=== PATIENT | female | born 1940 | race Caucasian/White ===

== ENCOUNTER → 2017-12-24 14:01 | Outpatient (CLI) | payer MEDICARE, OTHER, SELFPAY | PROVIDERS: Visit Provider Internal Medicine | DX: L89.92 Pressure ulcer of unspecified site, stage 2 (principal); S71.102A Unspecified open wound, left thigh, initial encounter; Z99.3 Dependence on wheelchair; E11.01 Type 2 diabetes mellitus with hyperosmolarity with coma | CPT/HCPCS: 11042; 87070; 87075; 87077; 87186; 87205 ==

== ENCOUNTER → 2018-01-01 10:57 | Outpatient (CLI) | payer MEDICARE, OTHER, SELFPAY ==
--- NOTE | 2018-01-01 | OV.WND_ITS ---
Progress Note Details Patient Name: Saritha Palmer Patient Number: [id number] PatientPatientDate: 01/01/2018 Clinician: Alejandra Gavin Clinician Cosigner: Zohreh Berry Physician / Bronc Buster: Constantine Rock SUBJECTIVE Chief Complaint This information was obtained from the patient Pressure ulcer on left posterior knee. Allergies NKDA HPI This information was obtained from the patient 01/01/18. Seen by Dr. Rock. The patient does not report pain associated with the left posterior thigh pressure ulcer since her last visit however her daughter and staff report significant drainage on the dressings. She's now on levofloxacin for the recent Acinetobacter and coag negative Staph cultured from the ulcer and she does not report fevers, adverse side effects from the antibiotics, nor feeling unwell in general. 12/24/17. Seen by Dr. Rock. The patient returns to clinic with a chronic left posterior thigh pressure ulcer that her daughter states has been present for about one month. The patient reports some pain at the site however there's no reported heavy drainage from the ulcer. She's morbidly obese and spends most of her time in a wheelchair which is thought to be the source of the ulcer. 06/28/[address] Rock. The patient nor her daughter report drainage from the right lower leg venous ulcer over the past week. 06/21/[address] Rock. The patient does not report pain associated with the right lower leg venous ulcer and she feels the drainage has decreased considerably over the past week. She continues on clindamycin and ampicillin for the coag negative Staph and Enterococcus positive wound cultures from 06/10/15 without reporting adverse side effects. 06/18/2015 Seen by Julio C Boucher PA-C. The patient reports decreased drainage from her wound vac. No ulcer pain reported. 06/14/[address] Rock. The patient reports less drainage in her wound vac and only minimal discomfort associated with the chronic right lower leg venous ulcer. Her recent wound culture grew Enterococcus and Staph. 06/07/[address] Rock. The patient states her wound vac canister filled and was replaced yesterday and she reports intermittent mild burning at the site of the right lower leg venous ulcer. Today is also her last day of Augmentin that was treating Enterococcus and 2 Staph species cultured from the ulcer. She does not report adverse side effects. 06/04/2015 Seen by Julio C Boucher PA-C. The patient has just completed her arterial doppler and the radiologist has informed me it is non-diagnostic due to body habitus. She reports stable drainage from her ulcer. 05/31/[address] Rock. the patient does not report an new issues regarding her right lower leg venous ulcer nor problems with the SNAP negative pressure dressing. Her wound culture from 05/28/15 grew two Staph species plus Enterococcus and she's currently not on antibiotics. 05/28/15 Seen by Julio C Boucher PA-C. The patient has tolerated her wound vac well and has recently moved into a house in town with a family caregiver. She reports minimal pain from her ulcer. 05/21/15 Seen by Julio C Boucher PA-C. The patient has noted not difficulties with her wound vac. Again she notes intermittent pain from her ulcer. 05/18/[address] Rock. The patient reports significant drainage from the right lower leg venous ulcer but does not report any problems regarding the wound vac. She states the ulcer is only minimally painful from time to time. 05/08/15 Seen by Julio C Boucher PA-C. The patient reports continued copious drainage from her venous ulcer. She will soon be moving to [place] and staying with family, once they have finished the addition to their house. She reports that she does not leave the house except to go to medical appointments. 05/03/[address] Rock. The patient's new to our clinic and has been referred by Dr. Krishnan for review of a chronic right lower leg venous ulcer that's been present for about 1 year. The patient reports copious drainage from the ulcer and has been on Bactrim recently plus two prior courses of doxycycline. Her wound culture from earlier this month grew Staph, Enterococcus, and Proteus and the patient feels the ulcer improved in terms of drainage while on antibiotics but she reports increased drainage the past few days since completing her course of Bactrim. She also has not utilized compression therapy over the past year due to the need to change dressings multiple times throughout the day. Of note, she uses a motorized wheelchair to mobilize due to morbid obesity and she does not report a history of diabetes, PAD, or symptoms of claudication or rest pain. Past Medical History This information was obtained from the patient Patient has a medical history of: Hydronephrosis, left (due to nephrolithiasis) Hallucinations Arthritis, right knee Tinea corporis Postmenopausal bleeding Atrial fibrillation Hypertension Dyslipidemia Morbid obesity Depression Allergic rhinitis Chronic venous hypertension (w/ inflammation and ulceration; right calf) Lymphedema Complaints and Symptoms This information was obtained from the patient Patient complains of: General Notes: I have reviewed and concur with the Review of Systems and Past Family Social History documents completed by the clinician, I have reviewed and concur with the Wound Assessment document completed by the clinician Cardiovascular (Central): Irregular heart beat Cardiovascular (Central/Peripheral): Lower extremity (leg) swelling Integumentary (Hair/Skin/Nails): Open Sore Musculoskeletal: Assistive Devices, Backache Prior Wound History: Drainage, Erythema, Pain Psychiatric: Depression Patient denies complaints or symptoms related to: Cardiovascular (Central/Peripheral): Intermittent Claudication, Lower extremity (leg) resting pain Constitutional Symptoms (General Health): Chills, Fever Ear/Nose/Mouth/Throat: Hearing Loss / Aid Gastrointestinal (GI): Nausea / Vomiting Hematologic/Lymphatic: Bleeding / Clotting Disorders, Bleeding Tendency Neurological: Loss of Protective Sensation Oncologic Prior Wound History: Bleeding, Malodor Psychiatric: Memory Loss Respiratory: Oxygen Use, Shortness of Breath OBJECTIVE Constitutional Vital signs reviewed and noted. Well developed. Alert. Clean appearing.. Height/ Length: 58 in (147.32 cm), BMI: 0, Temperature: 97.2 ?F (36.22 ?C), Pulse: 82 bpm, Respiratory Rate: 17 breaths/min, Blood Pressure: 125/69 mmHg, Pulse Oximetry: 97 %. Respiratory: No respiratory distress. Even respirations and without use of accessory muscles.. Cardiovascular: 3+ bilateral lower leg edema. Gastrointestinal (GI): Obese. Nondistended.. Integumentary (Hair, Skin) No periwound erythema, warmth, or significant drainage. No periwound rashes appreciated or noted otherwise.. Refer to appropriate clinician wound documentation for this visit; left posterior thigh ulcer extends to subcut with base partially covered with pink granulation, remainder fibrin and slough. Wound #2 Left Thigh is a chronic Stage 2 Pressure Injury Pressure Ulcer and has received a status of Not Healed. Subsequent wound encounter measurements are 3cm length x 2cm width x 0.2cm depth, with an area of 6 sq cm and a volume of 1.2 cubic cm. There is a moderate amount of serous drainage noted which has no odor. The patient reports a wound pain of level 0/10. The wound margin is attached. Wound bed has No epithelialization, No eschar, Yes slough, Yes bright red, pink, firm granulation. The periwound skin color is normal. The periwound skin exhibited: Edema, Moist. The periwound skin did not exhibit: Brawny Induration, Excoriation, Induration, Callus, Crepitus, Fluctuance, Friable, Rash, Dry/Scaly, Maceration. The temperature of the periwound skin is WNL. Periwound skin does not exhibit signs or symptoms of infection. Local Pulse is N/A. Neurological: Cranial nerves grossly intact with symmetric function normal by informal observation.. ASSESSMENT Active Problems ICD-10 (Encounter Diagnosis) L89.90 - Pressure ulcer of unspecified site, unspecified stage (Encounter Diagnosis) S71.102A - Unspecified open wound, left thigh, initial encounter (Encounter Diagnosis) L08.89 - Other specified local infections of the skin and subcutaneous tissue PROCEDURES Wound #2 Wound #2 (Pressure Ulcer) is located on the left thigh. A skin/subcutaneous tissue level surgical debridement with a total area debrided of 6 sq cm was performed by Constantine Rock MD. Subcutaneous was removed along with devitalized tissue: exudate and slough. The following instrument(s) were used: curette. Pain control was achieved using 4% Lido. A time out was conducted prior to the start of the procedure. A minimal amount of bleeding was controlled with n/a. The procedure was tolerated well with a pain level of 0 throughout and a pain level of 0 following the procedure. Post Debridement Measurements: 3cm length x 2cm width x 0.3cm depth; with an area of 6 sq cm and a volume of 1.8 cubic cm; Additional Information Muscle fascia or bone removed and sent to pathology?: No PLAN Wound Orders: Wound #2 Left Thigh Anesthetic Topical Xylocaine to wound bed. - In clinic only. Cleanser Cleanse Wound: - Normal saline and gauze. May use distilled water at home. May Shower. - Please avoid contact with wound site. Topical Treatments Antibiotic/Antimicrobial Ointment/Cream. - Aquacel. Dressings Cover and secure with: - ExuDry place in clinic, may use poise pads or other absorbent dressing at home. Change Dressing: - Home health- please change dressing on Mondays and Wednesdays. Patient- please change dressing as much as needed to control drainage. Additional Orders: Off-Loading Keep weight off: - Left thigh as much as possible. Prop area up with pillows. Follow-Up Appointments Return Appointment: - - One week. Other information: If you develop fever, chills, increased pain, drainage, redness or swelling please call our office. If after hours, respond to the ER. Should you experience any significant changes in your wound(s) or have any questions regarding your home care instructions please contact the wound center @ [phone]. If after hours, contact your primary care physician or go to the hospital emergency room. Scribing Attestation I attest, as the nurse, that I scribed these orders for the physician. I've reviewed the clinician's documentation and agree with the evaluation and plan as written. In addition, the patient's ulcer demonstrates evidence of non-viable devitalized tissue which will continue to benefit from sharp debridement to help promote granulation and expedite healing. Also, the patient will complete her course of levofloxacin as prescribed and we' ll continue to encourage offloading of the ulcer site noting this is difficult based on her morbid obesity and wheelchair dependence. Electronic Signature(s) Signed By: Date: Constantine Rock MD 01/04/2018 09:40:37 Entered By: Constantine Rock on 01/04/2018 09:29:20
== END ==
PROVIDERS: Visit Provider Internal Medicine
DX: L89.92 Pressure ulcer of unspecified site, stage 2 (principal); S71.102A Unspecified open wound, left thigh, initial encounter; E66.01 Morbid (severe) obesity due to excess calories; Z99.3 Dependence on wheelchair
CPT/HCPCS: 11042

== ENCOUNTER → 2018-01-08 10:08 | Outpatient (CLI) | payer MEDICARE, OTHER, SELFPAY | PROVIDERS: Visit Provider Internal Medicine | DX: L89.92 Pressure ulcer of unspecified site, stage 2 (principal); S71.102A Unspecified open wound, left thigh, initial encounter; E66.01 Morbid (severe) obesity due to excess calories; Z99.3 Dependence on wheelchair | CPT/HCPCS: 99213 ==

== ENCOUNTER → 2018-01-15 11:01 | Outpatient (CLI) | payer MEDICARE, OTHER, SELFPAY ==
--- NOTE | 2018-01-15 | OV.WND_ITS ---
Progress Note Details Patient Name: Saritha Palmer Patient Number: [id number] PatientPatientDate: 01/15/2018 Clinician: Sarah Hernandez Clinician Cosigner: Zohreh Berry Physician / Solution Engineer: Constantine Rock SUBJECTIVE Chief Complaint This information was obtained from the patient Pressure ulcer on left posterior knee. Allergies NKDA HPI This information was obtained from the patient 01/15/18. Seen by Dr. Rock. The patient fell in her transport van just prior to arriving at clinic and does not report any pain or injuries. Regarding her left posterior thigh pressure ulcer she does not report increased drainage or pain since her last visit. 01/01/18. Seen by Dr. Rock. The patient does not report pain associated with the left posterior thigh pressure ulcer since her last visit however her daughter and staff report significant drainage on the dressings. She's now on levofloxacin for the recent Acinetobacter and coag negative Staph cultured from the ulcer and she does not report fevers, adverse side effects from the antibiotics, nor feeling unwell in general. 12/24/17. Seen by Dr. Rock. The patient returns to clinic with a chronic left posterior thigh pressure ulcer that her daughter states has been present for about one month. The patient reports some pain at the site however there's no reported heavy drainage from the ulcer. She's morbidly obese and spends most of her time in a wheelchair which is thought to be the source of the ulcer. 06/28/[address] Rock. The patient nor her daughter report drainage from the right lower leg venous ulcer over the past week. 06/21/[address] Rock. The patient does not report pain associated with the right lower leg venous ulcer and she feels the drainage has decreased considerably over the past week. She continues on clindamycin and ampicillin for the coag negative Staph and Enterococcus positive wound cultures from 06/10/15 without reporting adverse side effects. 06/18/2015 Seen by Julio C Boucher PA-C. The patient reports decreased drainage from her wound vac. No ulcer pain reported. 06/14/[address] Rock. The patient reports less drainage in her wound vac and only minimal discomfort associated with the chronic right lower leg venous ulcer. Her recent wound culture grew Enterococcus and Staph. 06/07/[address] Rock. The patient states her wound vac canister filled and was replaced yesterday and she reports intermittent mild burning at the site of the right lower leg venous ulcer. Today is also her last day of Augmentin that was treating Enterococcus and 2 Staph species cultured from the ulcer. She does not report adverse side effects. 06/04/2015 Seen by Julio C Boucher PA-C. The patient has just completed her arterial doppler and the radiologist has informed me it is non-diagnostic due to body habitus. She reports stable drainage from her ulcer. 05/31/[address] Rock. the patient does not report an new issues regarding her right lower leg venous ulcer nor problems with the SNAP negative pressure dressing. Her wound culture from 05/28/15 grew two Staph species plus Enterococcus and she's currently not on antibiotics. 05/28/15 Seen by Julio C Boucher PA-C. The patient has tolerated her wound vac well and has recently moved into a house in town with a family caregiver. She reports minimal pain from her ulcer. 05/21/15 Seen by Julio C Boucher PA-C. The patient has noted not difficulties with her wound vac. Again she notes intermittent pain from her ulcer. 05/18/[address] Rock. The patient reports significant drainage from the right lower leg venous ulcer but does not report any problems regarding the wound vac. She states the ulcer is only minimally painful from time to time. 05/08/15 Seen by Julio C Boucher PA-C. The patient reports continued copious drainage from her venous ulcer. She will soon be moving to [place] and staying with family, once they have finished the addition to their house. She reports that she does not leave the house except to go to medical appointments. 05/03/[address] Rock. The patient's new to our clinic and has been referred by Dr. Krishnan for review of a chronic right lower leg venous ulcer that's been present for about 1 year. The patient reports copious drainage from the ulcer and has been on Bactrim recently plus two prior courses of doxycycline. Her wound culture from earlier this month grew Staph, Enterococcus, and Proteus and the patient feels the ulcer improved in terms of drainage while on antibiotics but she reports increased drainage the past few days since completing her course of Bactrim. She also has not utilized compression therapy over the past year due to the need to change dressings multiple times throughout the day. Of note, she uses a motorized wheelchair to mobilize due to morbid obesity and she does not report a history of diabetes, PAD, or symptoms of claudication or rest pain. Past Medical History This information was obtained from the patient Patient has a medical history of: Hydronephrosis, left (due to nephrolithiasis) Hallucinations Arthritis, right knee Tinea corporis Postmenopausal bleeding Atrial fibrillation Hypertension Dyslipidemia Morbid obesity Depression Allergic rhinitis Chronic venous hypertension (w/ inflammation and ulceration; right calf) Lymphedema Complaints and Symptoms This information was obtained from the patient Patient complains of: General Notes: I have reviewed and concur with the Review of Systems and Past Family Social History documents completed by the clinician, I have reviewed and concur with the Wound Assessment document completed by the clinician Cardiovascular (Central): Irregular heart beat Cardiovascular (Central/Peripheral): Lower extremity (leg) swelling Integumentary (Hair/Skin/Nails): Open Sore Musculoskeletal: Assistive Devices, Backache Prior Wound History: Drainage, Erythema, Pain Psychiatric: Depression Patient denies complaints or symptoms related to: Cardiovascular (Central/Peripheral): Intermittent Claudication, Lower extremity (leg) resting pain Constitutional Symptoms (General Health): Chills, Fever Ear/Nose/Mouth/Throat: Hearing Loss / Aid Gastrointestinal (GI): Nausea / Vomiting Hematologic/Lymphatic: Bleeding / Clotting Disorders, Bleeding Tendency Neurological: Loss of Protective Sensation Oncologic Prior Wound History: Bleeding, Malodor Psychiatric: Memory Loss Respiratory: Oxygen Use, Shortness of Breath OBJECTIVE Constitutional BP elevated; Afebrile; Alert and in no distress. Well developed. Alert. Clean appearing.. Height/Length: 58 in (147.32 cm), BMI: 0, Temperature: 97.2 ?F (36.22 ?C), Pulse : 85 bpm, Respiratory Rate: 20 breaths/min, Blood Pressure: 169/86 mmHg, Pulse Oximetry: 99 %. Ears, Nose, Mouth, and Throat: No clinically significant hearing loss on informal examination. Respiratory: No respiratory distress. Even respirations and without use of accessory muscles.. Gastrointestinal (GI): Obese. Nondistended.. Integumentary (Hair, Skin) Hyperkeratotic changes noted over the left lower leg. Refer to appropriate clinician wound documentation for this visit; left posterior thigh ulcer extends to subcut with base partially covered with red granulation, remainder fibrin and slough. Wound #2 Left Thigh is a chronic Stage 2 Pressure Injury Pressure Ulcer and has received a status of Not Healed. Subsequent wound encounter measurements are 2cm length x 1.8cm width x 0.2cm depth, with an area of 3.6 sq cm and a volume of 0.72 cubic cm. No tunneling has been noted. No sinus tract has been noted. No undermining has been noted. There is a large amount of serous drainage noted which has no odor. The patient reports a wound pain of level 0/10. The wound margin is attached. Wound bed has No epithelialization, No eschar, Yes slough, Yes bright red, spongy granulation. The periwound skin color is normal. The periwound skin exhibited: Edema, Moist, Maceration. The periwound skin did not exhibit: Brawny Induration, Excoriation, Induration, Callus, Crepitus, Fluctuance, Friable, Rash, Dry/Scaly. The temperature of the periwound skin is WNL. Periwound skin presents with s/s of infection. Confirmation Description and Treatment Plan is: Signs and Symptoms Present. Local Pulse is N/A. Neurological: Cranial nerves grossly intact with symmetric function normal by informal observation.. ASSESSMENT Active Problems ICD-10 (Encounter Diagnosis) L89.90 - Pressure ulcer of unspecified site, unspecified stage (Encounter Diagnosis) W18.30XA - Fall on same level, unspecified, initial encounter (Encounter Diagnosis) S71.102D - Unspecified open wound, left thigh, subsequent encounter PLAN I've reviewed the clinician's documentation and agree with the evaluation and plan as written. In addition, the patient's ulcer demonstrates evidence of non-viable devitalized tissue which will continue to benefit from sharp debridement to help promote granulation and expedite healing. Also, we'll consider placing a wound vac next week to help facilitate granulation. Electronic Signature(s) Signed By: Date: Constantine Rock MD 01/15/2018 13:36:07 Entered By: Constantine Rock on 01/15/2018 11:16:52
== END ==
PROVIDERS: Visit Provider Internal Medicine
DX: L89.92 Pressure ulcer of unspecified site, stage 2 (principal); S71.102D Unspecified open wound, left thigh, subsequent encounter
CPT/HCPCS: 11042

== ENCOUNTER → 2018-01-21 13:36 | Outpatient (CLI) | payer MEDICARE, OTHER, SELFPAY | PROVIDERS: Visit Provider Internal Medicine | DX: L89.92 Pressure ulcer of unspecified site, stage 2 (principal) | CPT/HCPCS: 11042; 87070; 87075; 87077; 87186; 87205 ==

== ENCOUNTER → 2018-01-28 14:06 | Outpatient (CLI) | payer MEDICARE, OTHER, SELFPAY ==
--- NOTE | 2018-01-28 | OV.WND_ITS ---
Progress Note Details Patient Name: Saritha Palmer Patient Number: [id number] PatientPatientDate: 01/28/2018 Clinician: Alejandra Gavin Clinician Cosigner: Zohreh Berry Physician / Avionics Test Technician: Constantine Rock SUBJECTIVE Chief Complaint This information was obtained from the patient Pressure ulcer on left posterior thigh. Allergies NKDA HPI This information was obtained from the patient 01/28/18. Seen by Dr. Rock. The patient is now on Augmentin and levofloxacin for the recent Klebsiella and Proteus positive culture taken from the chronic left posterior thigh pressure ulcer and does not report adverse side effects. 01/21/18. Seen by Dr. Rock. The patient does not report pain associated with the left posterior thigh pressure ulcer since her last visit and we're still awaiting approval for a wound vac. 01/15/18. Seen by Dr. Rock. The patient fell in her transport van just prior to arriving at clinic and does not report any pain or injuries. Regarding her left posterior thigh pressure ulcer she does not report increased drainage or pain since her last visit. 01/01/18. Seen by Dr. Rock. The patient does not report pain associated with the left posterior thigh pressure ulcer since her last visit however her daughter and staff report significant drainage on the dressings. She's now on levofloxacin for the recent Acinetobacter and coag negative Staph cultured from the ulcer and she does not report fevers, adverse side effects from the antibiotics, nor feeling unwell in general. 12/24/17. Seen by Dr. Rock. The patient returns to clinic with a chronic left posterior thigh pressure ulcer that her daughter states has been present for about one month. The patient reports some pain at the site however there's no reported heavy drainage from the ulcer. She's morbidly obese and spends most of her time in a wheelchair which is thought to be the source of the ulcer. 06/28/[address] Rock. The patient nor her daughter report drainage from the right lower leg venous ulcer over the past week. 06/21/[address] Rock. The patient does not report pain associated with the right lower leg venous ulcer and she feels the drainage has decreased considerably over the past week. She continues on clindamycin and ampicillin for the coag negative Staph and Enterococcus positive wound cultures from 06/10/15 without reporting adverse side effects. 06/18/2015 Seen by Julio C Boucher PA-C. The patient reports decreased drainage from her wound vac. No ulcer pain reported. 06/14/[address] Rock. The patient reports less drainage in her wound vac and only minimal discomfort associated with the chronic right lower leg venous ulcer. Her recent wound culture grew Enterococcus and Staph. 06/07/[address] Rock. The patient states her wound vac canister filled and was replaced yesterday and she reports intermittent mild burning at the site of the right lower leg venous ulcer. Today is also her last day of Augmentin that was treating Enterococcus and 2 Staph species cultured from the ulcer. She does not report adverse side effects. 06/04/2015 Seen by Julio C Boucher PA-C. The patient has just completed her arterial doppler and the radiologist has informed me it is non-diagnostic due to body habitus. She reports stable drainage from her ulcer. 05/31/[address] Rock. the patient does not report an new issues regarding her right lower leg venous ulcer nor problems with the SNAP negative pressure dressing. Her wound culture from 05/28/15 grew two Staph species plus Enterococcus and she's currently not on antibiotics. 05/28/15 Seen by Julio C Boucher PA-C. The patient has tolerated her wound vac well and has recently moved into a house in town with a family caregiver. She reports minimal pain from her ulcer. 05/21/15 Seen by Julio C Boucher PA-C. The patient has noted not difficulties with her wound vac. Again she notes intermittent pain from her ulcer. 05/18/[address] Rock. The patient reports significant drainage from the right lower leg venous ulcer but does not report any problems regarding the wound vac. She states the ulcer is only minimally painful from time to time. 05/08/15 Seen by Julio C Boucher PA-C. The patient reports continued copious drainage from her venous ulcer. She will soon be moving to [place] and staying with family, once they have finished the addition to their house. She reports that she does not leave the house except to go to medical appointments. 05/03/[address] Rock. The patient's new to our clinic and has been referred by Dr. Krishnan for review of a chronic right lower leg venous ulcer that's been present for about 1 year. The patient reports copious drainage from the ulcer and has been on Bactrim recently plus two prior courses of doxycycline. Her wound culture from earlier this month grew Staph, Enterococcus, and Proteus and the patient feels the ulcer improved in terms of drainage while on antibiotics but she reports increased drainage the past few days since completing her course of Bactrim. She also has not utilized compression therapy over the past year due to the need to change dressings multiple times throughout the day. Of note, she uses a motorized wheelchair to mobilize due to morbid obesity and she does not report a history of diabetes, PAD, or symptoms of claudication or rest pain. Past Medical History This information was obtained from the patient Patient has a medical history of: Hydronephrosis, left (due to nephrolithiasis) Hallucinations Arthritis, right knee Tinea corporis Postmenopausal bleeding Atrial fibrillation Hypertension Dyslipidemia Morbid obesity Depression Allergic rhinitis Chronic venous hypertension (w/ inflammation and ulceration; right calf) Lymphedema Complaints and Symptoms This information was obtained from the patient Patient complains of: General Notes: I have reviewed and concur with the Review of Systems and Past Family Social History documents completed by the clinician, I have reviewed and concur with the Wound Assessment document completed by the clinician Cardiovascular (Central): Irregular heart beat Cardiovascular (Central/Peripheral): Lower extremity (leg) swelling Integumentary (Hair/Skin/Nails): Open Sore Musculoskeletal: Assistive Devices, Backache Prior Wound History: Drainage, Erythema, Pain Psychiatric: Depression Patient denies complaints or symptoms related to: Cardiovascular (Central/Peripheral): Intermittent Claudication, Lower extremity (leg) resting pain Constitutional Symptoms (General Health): Chills, Fever Ear/Nose/Mouth/Throat: Hearing Loss / Aid Gastrointestinal (GI): Nausea / Vomiting Hematologic/Lymphatic: Bleeding / Clotting Disorders, Bleeding Tendency Neurological: Loss of Protective Sensation Oncologic Prior Wound History: Bleeding, Malodor Psychiatric: Memory Loss Respiratory: Oxygen Use, Shortness of Breath OBJECTIVE Constitutional Vital signs reviewed and noted. Height/Length: 58 in (147.32 cm), BMI: 0, Temperature: 97.3 ?F (36.28 ?C), Pulse: 95 bpm, Respiratory Rate: 19 breaths/min, Pulse Oximetry: 99 %. Respiratory: No respiratory distress. Even respirations and without use of accessory muscles.. Gastrointestinal (GI): Obese. Nondistended.. Integumentary (Hair, Skin) Hyperkeratotic changes noted over the right thigh. Refer to appropriate clinician wound documentation for this visit; left lower leg ulcer extends to subcut with base partially covered with pink granulation. Wound #2 Left Thigh is a chronic Stage 2 Pressure Injury Pressure Ulcer and has received a status of Not Healed. Subsequent wound encounter measurements are 3cm length x 1.6cm width x 0.2cm depth, with an area of 4.8 sq cm and a volume of 0.96 cubic cm. No tunneling has been noted. No sinus tract has been noted. No undermining has been noted. There is a large amount of serous drainage noted which has no odor. The patient reports a wound pain of level 0/10. The wound margin is attached. Wound bed has No epithelialization, No eschar, Yes slough, Yes bright red, spongy granulation. The periwound skin color is normal. The periwound skin exhibited: Edema, Moist. The periwound skin did not exhibit: Brawny Induration, Excoriation, Induration, Callus, Crepitus, Fluctuance, Friable, Rash, Dry/Scaly, Maceration. The temperature of the periwound skin is WNL. Periwound skin does not exhibit signs or symptoms of infection. Local Pulse is N/A. Neurological: Cranial nerves grossly intact with symmetric function normal by informal observation.. ASSESSMENT Active Problems ICD-10 (Encounter Diagnosis) L89.90 - Pressure ulcer of unspecified site, unspecified stage (Encounter Diagnosis) S71.102D - Unspecified open wound, left thigh, subsequent encounter (Encounter Diagnosis) B96.1 - Klebsiella pneumoniae [K. pneumoniae] as the cause of diseases classified elsewhere (Encounter Diagnosis) B96.4 - Proteus (mirabilis) (morganii) as the cause of diseases classified elsewhere PROCEDURES Wound #2 Wound #2 (Pressure Ulcer) is located on the left thigh. A skin/subcutaneous tissue level surgical debridement with a total area debrided of 4.8 sq cm was performed by Constantine Rock MD. Subcutaneous was removed along with devitalized tissue: slough. The following instrument(s) were used: curette. Pain control was achieved using 4% Lido. A time out was conducted prior to the start of the procedure. A minimal amount of bleeding was controlled with n/a. The procedure was tolerated well with a pain level of 0 throughout and a pain level of 0 following the procedure. Post Debridement Measurements: 3cm length x 1.6cm width x 0.3cm depth; with an area of 4.8 sq cm and a volume of 1.44 cubic cm; Additional Information Muscle fascia or bone removed and sent to pathology?: No PLAN Wound Orders: Wound #2 Left Thigh Anesthetic Topical Xylocaine to wound bed. - In clinic only. Cleanser Cleanse Wound: - Normal saline and gauze. May use distilled water at home. May Shower. - Please avoid contact with wound site. Dressings Cover and secure with: - Poise pad (sanitary pad) secured with hypafix tape. Change Dressing: - Home health- please change dressing on Mondays and Wednesdays and Thursday. Patient- please change dressing as much as needed to control drainage. Off-Loading Keep weight off: - Left thigh as much as possible. Prop area up with pillows. Additional Orders: Follow-Up Appointments Return Appointment: - - Two weeks Other information: If you develop fever, chills, increased pain, drainage, redness or swelling please call our office. If after hours, respond to the ER. Should you experience any significant changes in your wound(s) or have any questions regarding your home care instructions please contact the wound center @ [phone]. If after hours, contact your primary care physician or go to the hospital emergency room. Scribing Attestation I attest, as the nurse, that I scribed these orders for the physician. I've reviewed the clinician's documentation and agree with the evaluation and plan as written. In addition, the patient's ulcer demonstrates evidence of non-viable devitalized tissue which will continue to benefit from sharp debridement to help promote granulation and expedite healing. Also, the patient will complete her antibiotics as prescribed. Electronic Signature(s) Signed By: Date: Constantine Rock MD 01/29/2018 08:53:09 Entered By: Constantine Rock on 01/29/2018 07:18:21
== END ==
PROVIDERS: Visit Provider Internal Medicine
DX: B96.1 Klebsiella pneumoniae [K. pneumoniae] as the cause of diseases classified elsewhere (principal); B96.4 Proteus (mirabilis) (morganii) as the cause of diseases classified elsewhere; L89.92 Pressure ulcer of unspecified site, stage 2; S71.102A Unspecified open wound, left thigh, initial encounter
CPT/HCPCS: 11042

== ENCOUNTER → 2018-02-11 13:29 | Outpatient (CLI) | payer MEDICARE, OTHER, SELFPAY ==
--- NOTE | 2018-02-11 | OV.WND_ITS ---
Progress Note Details Patient Name: Saritha Palmer Patient Number: [id number] PatientPatientDate: 02/11/2018 Clinician: Lori Suarez Clinician Cosigner: Zohreh Berry Physician / Instrument Panel Assembler: Constantine Rock SUBJECTIVE Chief Complaint This information was obtained from the patient Pressure ulcer on left posterior thigh. Allergies NKDA HPI This information was obtained from the patient 02/11/18. Seen by Dr. Rock. The patient completed her course of Augmentin and levofloxacin that was treating the recent Klebsiella and Proteus positive culture taken from the chronic left posterior thigh pressure ulcer and she does not report pain or increased drainage from this site. 01/28/18. Seen by Dr. Rock. The patient is now on Augmentin and levofloxacin for the recent Klebsiella and Proteus positive culture taken from the chronic left posterior thigh pressure ulcer and does not report adverse side effects. 01/21/18. Seen by Dr. Rock. The patient does not report pain associated with the left posterior thigh pressure ulcer since her last visit and we're still awaiting approval for a wound vac. 01/15/18. Seen by Dr. Rock. The patient fell in her transport van just prior to arriving at clinic and does not report any pain or injuries. Regarding her left posterior thigh pressure ulcer she does not report increased drainage or pain since her last visit. 01/01/18. Seen by Dr. Rock. The patient does not report pain associated with the left posterior thigh pressure ulcer since her last visit however her daughter and staff report significant drainage on the dressings. She's now on levofloxacin for the recent Acinetobacter and coag negative Staph cultured from the ulcer and she does not report fevers, adverse side effects from the antibiotics, nor feeling unwell in general. 12/24/17. Seen by Dr. Rock. The patient returns to clinic with a chronic left posterior thigh pressure ulcer that her daughter states has been present for about one month. The patient reports some pain at the site however there's no reported heavy drainage from the ulcer. She's morbidly obese and spends most of her time in a wheelchair which is thought to be the source of the ulcer. 06/28/[address] Rock. The patient nor her daughter report drainage from the right lower leg venous ulcer over the past week. 06/21/[address] Rock. The patient does not report pain associated with the right lower leg venous ulcer and she feels the drainage has decreased considerably over the past week. She continues on clindamycin and ampicillin for the coag negative Staph and Enterococcus positive wound cultures from 06/10/15 without reporting adverse side effects. 06/18/2015 Seen by Julio C Boucher PA-C. The patient reports decreased drainage from her wound vac. No ulcer pain reported. 06/14/[address] Rock. The patient reports less drainage in her wound vac and only minimal discomfort associated with the chronic right lower leg venous ulcer. Her recent wound culture grew Enterococcus and Staph. 06/07/[address] Rock. The patient states her wound vac canister filled and was replaced yesterday and she reports intermittent mild burning at the site of the right lower leg venous ulcer. Today is also her last day of Augmentin that was treating Enterococcus and 2 Staph species cultured from the ulcer. She does not report adverse side effects. 06/04/2015 Seen by Julio C Boucher PA-C. The patient has just completed her arterial doppler and the radiologist has informed me it is non-diagnostic due to body habitus. She reports stable drainage from her ulcer. 05/31/[address] Rock. the patient does not report an new issues regarding her right lower leg venous ulcer nor problems with the SNAP negative pressure dressing. Her wound culture from 05/28/15 grew two Staph species plus Enterococcus and she's currently not on antibiotics. 05/28/15 Seen by Julio C Boucher PA-C. The patient has tolerated her wound vac well and has recently moved into a house in town with a family caregiver. She reports minimal pain from her ulcer. 05/21/15 Seen by Julio C Boucher PA-C. The patient has noted not difficulties with her wound vac. Again she notes intermittent pain from her ulcer. 05/18/[address] Rock. The patient reports significant drainage from the right lower leg venous ulcer but does not report any problems regarding the wound vac. She states the ulcer is only minimally painful from time to time. 05/08/15 Seen by Julio C Boucher PA-C. The patient reports continued copious drainage from her venous ulcer. She will soon be moving to [place] and staying with family, once they have finished the addition to their house. She reports that she does not leave the house except to go to medical appointments. 05/03/[address] Rock. The patient's new to our clinic and has been referred by Dr. Krishnan for review of a chronic right lower leg venous ulcer that's been present for about 1 year. The patient reports copious drainage from the ulcer and has been on Bactrim recently plus two prior courses of doxycycline. Her wound culture from earlier this month grew Staph, Enterococcus, and Proteus and the patient feels the ulcer improved in terms of drainage while on antibiotics but she reports increased drainage the past few days since completing her course of Bactrim. She also has not utilized compression therapy over the past year due to the need to change dressings multiple times throughout the day. Of note, she uses a motorized wheelchair to mobilize due to morbid obesity and she does not report a history of diabetes, PAD, or symptoms of claudication or rest pain. Past Medical History This information was obtained from the patient Patient has a medical history of: Hydronephrosis, left (due to nephrolithiasis) Hallucinations Arthritis, right knee Tinea corporis Postmenopausal bleeding Atrial fibrillation Hypertension Dyslipidemia Morbid obesity Depression Allergic rhinitis Chronic venous hypertension (w/ inflammation and ulceration; right calf) Lymphedema Complaints and Symptoms This information was obtained from the patient Patient complains of: General Notes: I have reviewed and concur with the Review of Systems and Past Family Social History documents completed by the clinician, I have reviewed and concur with the Wound Assessment document completed by the clinician Cardiovascular (Central): Irregular heart beat Cardiovascular (Central/Peripheral): Lower extremity (leg) swelling Integumentary (Hair/Skin/Nails): Open Sore Musculoskeletal: Assistive Devices, Backache Prior Wound History: Drainage, Erythema, Pain Psychiatric: Depression Patient denies complaints or symptoms related to: Cardiovascular (Central/Peripheral): Intermittent Claudication, Lower extremity (leg) resting pain Constitutional Symptoms (General Health): Chills, Fever Ear/Nose/Mouth/Throat: Hearing Loss / Aid Gastrointestinal (GI): Nausea / Vomiting Hematologic/Lymphatic: Bleeding / Clotting Disorders, Bleeding Tendency Neurological: Loss of Protective Sensation Oncologic Prior Wound History: Bleeding, Malodor Psychiatric: Memory Loss Respiratory: Oxygen Use, Shortness of Breath OBJECTIVE Constitutional BP elevated; Afebrile; Alert and in no distress. Well developed. Alert. Clean appearing.. Height/Length: 58 in (147.32 cm), BMI: 0, Temperature: 97.4 ?F (36.33 ?C), Pulse : 68 bpm, Respiratory Rate: 18 breaths/min, Blood Pressure: 147/83 mmHg, Pulse Oximetry: 96 %. Gastrointestinal (GI): Obese. Nondistended.. Integumentary (Hair, Skin) Hyperkeratotic changes noted over the left leg. Refer to appropriate clinician wound documentation for this visit; left posterior thigh ulcer extends to subcut with base partially covered with pink granulation. Wound #2 Left Thigh is a chronic Stage 2 Pressure Injury Pressure Ulcer and has received a status of Not Healed. Subsequent wound encounter measurements are 2.4cm length x 2cm width x 0.2cm depth, with an area of 4.8 sq cm and a volume of 0.96 cubic cm. No tunneling has been noted. No sinus tract has been noted. No undermining has been noted. There is a large amount of serous drainage noted which has no odor. The patient reports a wound pain of level 0/10. The wound margin is attached. Wound bed has Yes epithelialization, No eschar, Yes slough, Yes bright red, spongy granulation. The periwound skin color is normal. The periwound skin exhibited: Edema, Moist. The periwound skin did not exhibit: Brawny Induration, Excoriation, Induration, Callus, Crepitus, Fluctuance, Friable, Rash, Dry/Scaly, Maceration. The temperature of the periwound skin is WNL. Periwound skin does not exhibit signs or symptoms of infection. Local Pulse is N/A. Neurological: Cranial nerves grossly intact with symmetric function normal by informal observation.. ASSESSMENT Active Problems ICD-10 (Encounter Diagnosis) L89.90 - Pressure ulcer of unspecified site, unspecified stage (Encounter Diagnosis) S71.102D - Unspecified open wound, left thigh, subsequent encounter (Encounter Diagnosis) B96.4 - Proteus (mirabilis) (morganii) as the cause of diseases classified elsewhere (Encounter Diagnosis) B96.1 - Klebsiella pneumoniae [K. pneumoniae] as the cause of diseases classified elsewhere PROCEDURES Wound #2 Wound #2 (Pressure Ulcer) is located on the left thigh. A skin/subcutaneous tissue level surgical debridement with a total area debrided of 4.8 sq cm was performed by Constantine Rock MD. Subcutaneous was removed along with devitalized tissue: exudate and slough. The following instrument(s) were used: curette. Pain control was achieved using 4% Lido. A time out was conducted prior to the start of the procedure. A moderate amount of bleeding was controlled with silver nitrate. The procedure was tolerated well with a pain level of 0 throughout and a pain level of 0 following the procedure. Post Debridement Measurements: 2.4cm length x 2cm width x 0.3cm depth; with an area of 4.8 sq cm and a volume of 1.44 cubic cm; Additional Information Muscle fascia or bone removed and sent to pathology?: No PLAN Wound Orders: Wound #2 Left Thigh Anesthetic Topical Xylocaine to wound bed. - In clinic only. Cleanser Cleanse Wound: - Normal saline and gauze. May use distilled water at home. May Shower. - Please avoid contact with wound site. Dressings Cover and secure with: - Mextra Superabsorbent dressing (or equivalent) secured with silicone tape. Change Dressing: - Home health- please change dressing on Mondays and Wednesdays and Thursday. Patient- please change dressing as much as needed to control drainage. Off-Loading Keep weight off: - Left thigh as much as possible. Prop area up with pillows. Follow-Up Appointments Return Appointment: - - One week. Other information: If you develop fever, chills, increased pain, drainage, redness or swelling please call our office. If after hours, respond to the ER. Should you experience any significant changes in your wound(s) or have any questions regarding your home care instructions please contact the wound center @ [phone]. If after hours, contact your primary care physician or go to the hospital emergency room. Scribing Attestation I attest, as the nurse, that I scribed these orders for the physician. General Notes: [facility]- please change dressing on Thursday, Thursday, and Thursday. I've reviewed the clinician's documentation and agree with the evaluation and plan as written. In addition, the patient's ulcer demonstrates evidence of non-viable devitalized tissue which will continue to benefit from sharp debridement to help promote granulation and expedite healing. Also, we'll defer additional antibiotics however I have a low threshold to restart if the ulcer again appears to be deteriorating or shows signs of clinically significant infection. Electronic Signature(s) Signed By: Date: Constantine Rock MD 02/12/2018 06:00:06 Entered By: Constantine Rock on 02/12/2018 05:48:37
== END ==
PROVIDERS: Visit Provider Internal Medicine
DX: L89.92 Pressure ulcer of unspecified site, stage 2 (principal); S71.102A Unspecified open wound, left thigh, initial encounter; B96.4 Proteus (mirabilis) (morganii) as the cause of diseases classified elsewhere; B96.1 Klebsiella pneumoniae [K. pneumoniae] as the cause of diseases classified elsewhere
CPT/HCPCS: 11042

== ENCOUNTER → 2018-02-18 13:07 | Outpatient (CLI) | payer MEDICARE, OTHER, SELFPAY ==
--- NOTE | 2018-02-18 | OV.WND_ITS ---
Progress Note Details Patient Name: Saritha Palmer Patient Number: [id number] PatientPatientDate: 02/18/2018 Clinician: Lori Suarez Clinician Cosigner: Zohreh Berry Physician / Consumer Electronics Merchandiser: Constantine Rock SUBJECTIVE Chief Complaint This information was obtained from the patient Pressure ulcer on left posterior thigh. Allergies NKDA HPI This information was obtained from the patient 02/18/18. Seen by Dr. Rock. The patient does not report pain associated with the left posterior thigh pressure ulcer since her last visit. 02/11/18. Seen by Dr. Rock. The patient completed her course of Augmentin and levofloxacin that was treating the recent Klebsiella and Proteus positive culture taken from the chronic left posterior thigh pressure ulcer and she does not report pain or increased drainage from this site. 01/28/18. Seen by Dr. Rock. The patient is now on Augmentin and levofloxacin for the recent Klebsiella and Proteus positive culture taken from the chronic left posterior thigh pressure ulcer and does not report adverse side effects. 01/21/18. Seen by Dr. Rock. The patient does not report pain associated with the left posterior thigh pressure ulcer since her last visit and we're still awaiting approval for a wound vac. 01/15/18. Seen by Dr. Rock. The patient fell in her transport van just prior to arriving at clinic and does not report any pain or injuries. Regarding her left posterior thigh pressure ulcer she does not report increased drainage or pain since her last visit. 01/01/18. Seen by Dr. Rock. The patient does not report pain associated with the left posterior thigh pressure ulcer since her last visit however her daughter and staff report significant drainage on the dressings. She's now on levofloxacin for the recent Acinetobacter and coag negative Staph cultured from the ulcer and she does not report fevers, adverse side effects from the antibiotics, nor feeling unwell in general. 12/24/17. Seen by Dr. Rock. The patient returns to clinic with a chronic left posterior thigh pressure ulcer that her daughter states has been present for about one month. The patient reports some pain at the site however there's no reported heavy drainage from the ulcer. She's morbidly obese and spends most of her time in a wheelchair which is thought to be the source of the ulcer. 06/28/[address] Rock. The patient nor her daughter report drainage from the right lower leg venous ulcer over the past week. 06/21/[address] Rock. The patient does not report pain associated with the right lower leg venous ulcer and she feels the drainage has decreased considerably over the past week. She continues on clindamycin and ampicillin for the coag negative Staph and Enterococcus positive wound cultures from 06/10/15 without reporting adverse side effects. 06/18/2015 Seen by Julio C Boucher PA-C. The patient reports decreased drainage from her wound vac. No ulcer pain reported. 06/14/[address] Rock. The patient reports less drainage in her wound vac and only minimal discomfort associated with the chronic right lower leg venous ulcer. Her recent wound culture grew Enterococcus and Staph. 06/07/[address] Rock. The patient states her wound vac canister filled and was replaced yesterday and she reports intermittent mild burning at the site of the right lower leg venous ulcer. Today is also her last day of Augmentin that was treating Enterococcus and 2 Staph species cultured from the ulcer. She does not report adverse side effects. 06/04/2015 Seen by Julio C Boucher PA-C. The patient has just completed her arterial doppler and the radiologist has informed me it is non-diagnostic due to body habitus. She reports stable drainage from her ulcer. 05/31/[address] Rock. the patient does not report an new issues regarding her right lower leg venous ulcer nor problems with the SNAP negative pressure dressing. Her wound culture from 05/28/15 grew two Staph species plus Enterococcus and she's currently not on antibiotics. 05/28/15 Seen by Julio C Boucher PA-C. The patient has tolerated her wound vac well and has recently moved into a house in town with a family caregiver. She reports minimal pain from her ulcer. 05/21/15 Seen by Julio C Boucher PA-C. The patient has noted not difficulties with her wound vac. Again she notes intermittent pain from her ulcer. 05/18/[address] Rock. The patient reports significant drainage from the right lower leg venous ulcer but does not report any problems regarding the wound vac. She states the ulcer is only minimally painful from time to time. 05/08/15 Seen by Julio C Boucher PA-C. The patient reports continued copious drainage from her venous ulcer. She will soon be moving to [place] and staying with family, once they have finished the addition to their house. She reports that she does not leave the house except to go to medical appointments. 05/03/[address] Rock. The patient's new to our clinic and has been referred by Dr. Krishnan for review of a chronic right lower leg venous ulcer that's been present for about 1 year. The patient reports copious drainage from the ulcer and has been on Bactrim recently plus two prior courses of doxycycline. Her wound culture from earlier this month grew Staph, Enterococcus, and Proteus and the patient feels the ulcer improved in terms of drainage while on antibiotics but she reports increased drainage the past few days since completing her course of Bactrim. She also has not utilized compression therapy over the past year due to the need to change dressings multiple times throughout the day. Of note, she uses a motorized wheelchair to mobilize due to morbid obesity and she does not report a history of diabetes, PAD, or symptoms of claudication or rest pain. Past Medical History This information was obtained from the patient Patient has a medical history of: Hydronephrosis, left (due to nephrolithiasis) Hallucinations Arthritis, right knee Tinea corporis Postmenopausal bleeding Atrial fibrillation Hypertension Dyslipidemia Morbid obesity Depression Allergic rhinitis Chronic venous hypertension (w/ inflammation and ulceration; right calf) Lymphedema Complaints and Symptoms This information was obtained from the patient Patient complains of: General Notes: I have reviewed and concur with the Review of Systems and Past Family Social History documents completed by the clinician, I have reviewed and concur with the Wound Assessment document completed by the clinician Cardiovascular (Central): Irregular heart beat Cardiovascular (Central/Peripheral): Lower extremity (leg) swelling Integumentary (Hair/Skin/Nails): Open Sore Musculoskeletal: Assistive Devices, Backache Prior Wound History: Drainage, Erythema, Pain Psychiatric: Depression Patient denies complaints or symptoms related to: Cardiovascular (Central/Peripheral): Intermittent Claudication, Lower extremity (leg) resting pain Constitutional Symptoms (General Health): Chills, Fever Ear/Nose/Mouth/Throat: Hearing Loss / Aid Gastrointestinal (GI): Nausea / Vomiting Hematologic/Lymphatic: Bleeding / Clotting Disorders, Bleeding Tendency Neurological: Loss of Protective Sensation Oncologic Prior Wound History: Bleeding, Malodor Psychiatric: Memory Loss Respiratory: Oxygen Use, Shortness of Breath OBJECTIVE Constitutional BP elevated; Afebrile; Alert and in no distress. Well developed. Alert. Clean appearing.. Height/Length: 58 in (147.32 cm), BMI: 0, Temperature: 98.3 ?F (36.83 ?C), Pulse : 77 bpm, Respiratory Rate: 18 breaths/min, Blood Pressure: 140/63 mmHg, Pulse Oximetry: 97 %. Respiratory: No respiratory distress. Even respirations and without use of accessory muscles.. Gastrointestinal (GI): Obese. Nondistended.. Integumentary (Hair, Skin) Hyperkeratotic changes noted over the left lower leg. Refer to appropriate clinician wound documentation for this visit; blistering noted in the periwound area/s. Wound #2 Left Thigh is a chronic Stage 2 Pressure Injury Pressure Ulcer and has received a status of Not Healed. Subsequent wound encounter measurements are 2cm length x 1.9cm width x 0.3cm depth, with an area of 3.8 sq cm and a volume of 1.14 cubic cm. No tunneling has been noted. No sinus tract has been noted. No undermining has been noted. There is a large amount of serous drainage noted which has no odor. The patient reports a wound pain of level 0/10. The wound margin is attached. Wound bed has Yes epithelialization, No eschar, Yes slough, Yes bright red, spongy granulation. The periwound skin color is normal. The periwound skin exhibited: Edema, Moist. The periwound skin did not exhibit: Brawny Induration, Excoriation, Induration, Callus, Crepitus, Fluctuance, Friable, Rash, Dry/Scaly, Maceration. The temperature of the periwound skin is WNL. Periwound skin does not exhibit signs or symptoms of infection. Local Pulse is N/A. Neurological: Cranial nerves grossly intact with symmetric function normal by informal observation.. ASSESSMENT Active Problems ICD-10 (Encounter Diagnosis) L89.90 - Pressure ulcer of unspecified site, unspecified stage (Encounter Diagnosis) S71.102D - Unspecified open wound, left thigh, subsequent encounter PROCEDURES Wound #2 Wound #2 (Pressure Ulcer) is located on the left thigh. A skin/subcutaneous tissue level surgical debridement with a total area debrided of 3.8 sq cm was performed by Constantine Rock MD. Subcutaneous was removed along with devitalized tissue: exudate and slough. The following instrument(s) were used: curette. Pain control was achieved using 4% Lido. A time out was conducted prior to the start of the procedure. A moderate amount of bleeding was controlled with silver nitrate. The procedure was tolerated well with a pain level of 0 throughout and a pain level of 0 following the procedure. Post Debridement Measurements: 2cm length x 1.9cm width x 0.4cm depth; with an area of 3.8 sq cm and a volume of 1.52 cubic cm; Additional Information Muscle fascia or bone removed and sent to pathology?: No PLAN Wound Orders: Wound #2 Left Thigh Anesthetic Topical Xylocaine to wound bed. Cleanser Cleanse Wound: - Normal saline and gauze. Dressings Primary dressing: - Silver aquacel 2x2. Cover and secure with: - Superabsorbent dressing 4x4 (Mextra used in clinic). Secured with 2 inch silicone tape. Change Dressing: - Home health- please change dressing on Thursday. We will see patient again the following Thursday and send new orders. Follow-Up Appointments Return Appointment: - - Thursday and to plan for SNAP placement. Other information: If you develop fever, chills, increased pain, drainage, redness or swelling please call our office. If after hours, respond to the ER. Should you experience any significant changes in your wound(s) or have any questions regarding your home care instructions please contact the wound center @ [phone]. If after hours, contact your primary care physician or go to the hospital emergency room. Scribing Attestation I attest, as the nurse, that I scribed these orders for the physician. I've reviewed the clinician's documentation and agree with the evaluation and plan as written. In addition, the patient's ulcer demonstrates evidence of non-viable devitalized tissue which will continue to benefit from sharp debridement to help promote granulation and expedite healing. Electronic Signature(s) Signed By: Date: Constantine Rock MD 02/19/2018 06:31:21 Entered By: Constantine Rock on 02/19/2018 06:13:44
== END ==
PROVIDERS: Visit Provider Internal Medicine
DX: L89.92 Pressure ulcer of unspecified site, stage 2 (principal); S71.102A Unspecified open wound, left thigh, initial encounter
CPT/HCPCS: 11042